=== PATIENT | male | born 1940 | race Caucasian/White ===

== ENCOUNTER 2019-08-13 09:20 | Outpatient (CLI) | payer MEDICARE ==
[2019-08-13 11:00] LABS: ALBUMIN 3.8 g/dL (3.4-5.0); ANION GAP 7 mmol/L (5-15); CALCIUM 9.2 mg/dL (8.5-10.1); CHLORIDE 108 mmol/L (98-107)
[2019-08-13 11:03] LABS: ALANINE AMINOTRANSFERASE 17 U/L (12-78); ALKALINE PHOSPHATASE 59 U/L (45-117); BILIRUBIN,TOTAL 1.7 mg/dL (0.2-1.0); CREATININE 1.03 mg/dL (0.7-1.3); TOTAL PROTEIN 7.1 g/dL (6.4-8.2)
[2019-08-13] MEDS ORDERED: SIMV20TA19 PO (11:15)
[2019-08-13] MEDS ORDERED: OMEG1CAP23 PO (11:15)
[2019-08-13] MEDS ORDERED: LOSA50TA14 PO (11:15)
[2019-08-13] MEDS ORDERED: AMOX-291 PO (11:15)
[2019-08-13] MEDS ORDERED: [UNRECOGNIZED DRUG - OTHER] PO (11:15)
[2019-08-13] MEDS ORDERED: FEXO1TAB29 PO (11:15)
[2019-08-13] MEDS ORDERED: METO50TA82 PO (11:15)
[2019-08-13] MEDS ORDERED: ASPI-496 PO (11:15)
[2019-08-13] MEDS ORDERED: TAMS-11 PO (11:15)
[2019-08-13] MEDS ORDERED: CHOL10003 PO (11:15)
== END 2019-08-13 23:59 | disposition home or self-care (01) ==
LOC: STAR 09:20
PROVIDERS: ATTEND Surgery
DX: Z01.818 Encounter for other preprocedural examination (principal); K40.90 Unilateral inguinal hernia, without obstruction or gangrene, not specified as recurrent; I21.09 ST elevation (STEMI) myocardial infarction involving other coronary artery of anterior wall
CPT/HCPCS: 36415; 80053; 93005

== ENCOUNTER 2019-08-17 06:20 | Day surgery (SDC) | payer MEDICARE ==
[~2019-08-17] VITALS: Ht 174 cm; Wt 71.2 kg
[~2019-08-17 06:20] MED LIST: AMOX-291 PO; ASPI-496 PO; CHOL10003 PO; FEXO1TAB29 PO; LOSA50TA14 PO; METO50TA82 PO; OMEG1CAP23 PO; SIMV20TA19 PO; TAMS-11 PO; [UNRECOGNIZED DRUG - OTHER] PO
[2019-08-17] MEDS ORDERED: BUPIVACAINE/PF-EPI 0.5% 1:200K ONE (06:59)
[2019-08-17] MEDS ORDERED: LACTATED RINGERS 1,000 ML IV SCH (07:02)
[2019-08-17 07:08] VITALS: BP 148/81
[2019-08-17] MEDS ORDERED: CHLORHEXIDINE 15 ML UDC ONE (07:13)
[2019-08-17] MEDS ORDERED: CHLORHEXIDINE 15 ML UDC MM ONE (07:30)
[2019-08-17] MEDS ORDERED: FENTANYL PF 250 MCG/5ML ONE (08:11)
[2019-08-17] MEDS ORDERED: ROCURONIUM 10MG/ML,5ML ONE (08:13)
[2019-08-17] MEDS ORDERED: ONDANSETRON 2MG/ML, 2ML ONE (08:13)
[2019-08-17] MEDS ORDERED: DEXAMETHASONE 4 MG/ML, 1ML ONE (08:13)
[2019-08-17] MEDS ORDERED: NEOSTIGMINE 1 MG/ML, 10ML ONE (08:13)
[2019-08-17] MEDS ORDERED: CEFAZOLIN 1,000 MG ONE (08:13)
[2019-08-17] MEDS ORDERED: LIDOCAINE-MPF 2% ,5ML ONE (08:13)
[2019-08-17] MEDS ORDERED: SUCCINYLCHOLINE 20 MG/ML, 10ML ONE (08:13)
[2019-08-17] MEDS ORDERED: PROPOFOL 10 MG/ML, 20ML ONE (08:13)
[2019-08-17] MEDS ORDERED: GLYCOPYRROLATE 0.2MG/1ML, 5ML ONE (08:13)
[2019-08-17] MEDS ORDERED: HYDROmorphone 1 MG/ML, 1ML INJ IVPush PRN (08:30)
[2019-08-17] MEDS ORDERED: LABETALOL 5MG/ML, 20ML IV PRN (08:30)
[2019-08-17] MEDS ORDERED: PROMETHAZINE 25 MG SUPP PR PRN (08:30)
[2019-08-17] MEDS ORDERED: PROMETHAZINE 25 MG/ML, 1ML IVPush PRN (08:30)
[2019-08-17] MEDS ORDERED: FENTANYL PF 100 MCG/2ML IV PRN (08:30)
[2019-08-17] MEDS ORDERED: hydrALAzine 20 MG/ML, 1ML IV PRN (08:30)
[2019-08-17] MEDS ORDERED: OXYcodone 5 MG/5 ML ORAL.SOL UDC PO PRN (08:30)
[2019-08-17] MEDS ORDERED: ACETAMINOPHEN 325 MG TABLET PO PRN (08:30)
[2019-08-17] MEDS ORDERED: ONDANSETRON 2MG/ML, 2ML IVPush PRN (08:30)
[2019-08-17] MEDS ORDERED: BUPIVACAINE/PF-EPI 0.5% 1:200K INFIL ONE (08:42)
[2019-08-17] MEDS ORDERED: KETOROLAC 30 MG/1 ML ONE (09:29)
[2019-08-17] MEDS ORDERED: ACETAMINOPHEN 650 MG/20.3 ML UDC ONE (09:30)
[2019-08-17] MEDS ORDERED: SUGAMMADEX 200 MG/2 ML IVPush ONE (09:31)
[2019-08-17] MEDS ORDERED: EPHEDRINE 50 MG/ML, 1ML ONE (09:31)
[2019-08-17] MEDS ORDERED: KETOROLAC 30 MG/1 ML IVPush ONE (10:00)
== END 2019-08-17 12:40 | disposition home or self-care (01) ==
LOC: OUT 06:20
PROVIDERS: ATTEND Surgery
DX: K40.90 Unilateral inguinal hernia, without obstruction or gangrene, not specified as recurrent (principal); Z11.59 Encounter for screening for other viral diseases; I10 Essential (primary) hypertension; E78.5 Hyperlipidemia, unspecified; Z98.890 Other specified postprocedural states
CPT/HCPCS: 49650; C1727; C1781; J0330; J0690; J1100; J1885; J2405; J2704; J2710; J3010; J7120; U0001